=== PATIENT | male | born 1980 | race African-American/Black ===

== ENCOUNTER 2017-03-29 10:09 | Emergency (ER) | payer MEDICAID ==
[~2017-03-29] VITALS: Ht 165.1 cm; Wt 68.0 kg
[2017-03-29] MEDS ORDERED: IPRATROPIUM/ALBUTEROL 0.5-3(2.5)MG/3ML NEB HHN ONE (10:45)
[2017-03-29] MEDS ORDERED: GABAPENTIN 400MG CAPSULE PO ONE (10:45)
[2017-03-29 10:51] VITALS: BP 118/74
[2017-03-29] MEDS ORDERED: VALPROIC ACID 250MG CAPSULE PO ONE (12:45)
== END 2017-03-29 13:10 | disposition home or self-care (01) ==
LOC: ER 10:09
DX: G62.9 Polyneuropathy, unspecified (principal); J44.9 Chronic obstructive pulmonary disease, unspecified; G40.909 Epilepsy, unspecified, not intractable, without status epilepticus; R03.0 Elevated blood-pressure reading, without diagnosis of hypertension; F20.9 Schizophrenia, unspecified; Z88.0 Allergy status to penicillin; Z88.6 Allergy status to analgesic agent; Z91.018 Allergy to other foods; F17.210 Nicotine dependence, cigarettes, uncomplicated
CPT/HCPCS: 36415; 80165; 94640; 99283; Z7610; J7620